=== PATIENT | female | born 1995 | race African-American/Black ===

== ENCOUNTER 2025-04-21 09:51 | Emergency (ER) | payer MEDICAID ==
[~2025-04-21] VITALS: Ht 167.6 cm; Wt 160.0 kg
[2025-04-21 10:04] VITALS: O2SAT 98
[2025-04-21] MEDS: LIDOCAINE HCL 1% 20ML VIAL INFIL ONE (10:43)
[2025-04-21] MEDS ORDERED: CEPH500T MT (11:39)
[2025-04-21] MEDS ORDERED: NAPR-681 PO (11:39)
[2025-04-21] MEDS: BACITRACIN ZINC OINT UDPKT TOP SCH (11:57)
[2025-04-21 12:01] VITALS: BP 122/69; PULSE 65; RESP 18; TEMP 36.7; O2SAT 100
== END 2025-04-21 12:06 | disposition home or self-care (01) ==
LOC: ER 09:51
DX: S90.851A Superficial foreign body, right foot, initial encounter (principal); Z98.890 Other specified postprocedural states; W45.8XXA Other foreign body or object entering through skin, initial encounter; Y93.89 Activity, other specified; Y92.89 Other specified places as the place of occurrence of the external cause; Y99.8 Other external cause status
CPT/HCPCS: 28190; 99284; 81025; 73630; J2003